=== PATIENT | male | born 1950 | race African-American/Black ===

== ENCOUNTER 2024-04-10 10:44 | Outpatient (CLI) | payer OTHER ==
[2024-04-10 12:12] LABS: #Basophils 0.04 10x3/uL (0.0-0.2); %Basophils 0.6 % (0.0-1.0); %Eosinophils 5.8 % (0.0-10.0); %Lymphocytes 32.2 % (21.0-51.0); %Monocytes 11.1 % (0.0-10.0); %Neutrophils 49.7 % (42.0-75.0); Hematocrit 48.1 % (42.0-52.0); Hemoglobin 16.3 g/dL (14.0-18.0); Mean Corpuscular HGB CONC 33.9 g/dL (32.0-36.0); Mean Corpuscular Hemoglobin 30.5 pg (27.0-31.0); Mean Corpuscular Volume 89.9 fL (78.0-98.0); Mean Platelet Volume 9.5 fL (7.4-10.4); Platelet Count 252 10x3/uL (130-400); RBC Distribution Width 14.4 % (11.5-14.5); Red Blood Cell (RBC) Count 5.35 mill/uL (4.70-6.10)
[2024-04-10 12:45] LABS: Anion Gap 14 mmol/L (10-20); BUN (Urea Nitrogen) 30 mg/dL (8.4-25.7); Calc. Creatinine Clearance 0 mL/min (70-130); Calcium 9.3 mg/dL (7.8-10.44); Carbon Dioxide 22 mmol/L (23-31); Chloride 111 mmol/L (98-107); Estimated GFR 40; Glucose 116 mg/dL (83-110); Potassium 3.7 mmol/L (3.5-5.1); Sodium 143 mmol/L (136-145)
== END 2024-04-10 10:45 | disposition home or self-care (01) ==
LOC: LABBT 10:44
PROVIDERS: ATTEND Thoracic Surgery (Cardiothoracic Vascular Surgery)
DX: Z01.818 Encounter for other preprocedural examination (principal); I65.22 Occlusion and stenosis of left carotid artery
CPT/HCPCS: 80048; 85025; 93005; 93010

== ENCOUNTER 2024-04-10 11:00 | Inpatient (IN) | payer OTHER ==
[2024-04-14] MEDS ORDERED: CEFAZOLIN 2 GM VIAL ONE (07:41)
[2024-04-14] MEDS ORDERED: Lidocaine 1% MPF 2 ML VIAL ONE (07:41)
[2024-04-14] MEDS ORDERED: PROPOFOL 20 ML ONE ×3 (09:09→10:40)
[2024-04-14] MEDS ORDERED: fentaNYL PF 100 MCG/2 ML SYRINGE ONE (09:09)
[2024-04-14] MEDS ORDERED: Heparin 5,000 UNITS/ML VIAL ONE (09:09)
[2024-04-14] MEDS ORDERED: EPINEPHrine 1 MG/ML VIAL ONE (09:09)
[2024-04-14] MEDS ORDERED: Bupivacaine PF 0.5% 30 ML VIAL ONE (09:09)
[2024-04-14] MEDS ORDERED: Glycopyrrolate 0.2 MG/ML 5 ML SYRINGE ONE (09:13)
[2024-04-14] MEDS ORDERED: Rocuronium Bromide 10 MG/ML (10ML VIAL) ONE (09:45)
[2024-04-14] MEDS ORDERED: CEFAZOLIN 1 GM VIAL ONE (09:50)
[2024-04-14] MEDS ORDERED: Heparin 10,000 UNITS/ 10 ML VIAL ONE (09:54)
[2024-04-14] MEDS ORDERED: PHENYLEPHRINE-NS 100 MCG/ML 10 ML SYRINGE ONE (10:18)
[2024-04-14] MEDS ORDERED: Protamine Sulfate 50 MG/5 ML VIAL ONE (10:31)
[2024-04-14] MEDS ORDERED: SUGAMMADEX SODIUM 200 MG/2 ML VIAL ONE (10:35)
[2024-04-14] MEDS ORDERED: Ondansetron PF 4 MG/2 ML Vial ONE (10:36)
[2024-04-14] MEDS ORDERED: Phenylephrine 40 MG/NS 250 ML 250 ML IVPB PRN (11:10)
[2024-04-14] MEDS ORDERED: Diclofenac 1% 50 GM TOPICAL GEL TP PRN (11:10)
[2024-04-14] MEDS ORDERED: Ondansetron PF 4 MG/2 ML Vial IVP PRN (11:10)
[2024-04-14] MEDS ORDERED: hydrALAZINE 20 MG/ML VIAL SLOW IVP PRN (11:10)
[2024-04-14] MEDS ORDERED: Acetaminophen 325 MG TAB PO PRN (11:10)
[2024-04-14] MEDS ORDERED: Insulin Regular, Human 100 UNIT/ML 10 ML VIAL SC PRN (11:10)
[2024-04-14] MEDS ORDERED: Nitroglycerin 50 MG/250 ML BOT 250 ML IVPB PRN (11:10)
[2024-04-14] MEDS ORDERED: Ipratropium/Albuterol 3 ML NEB NEB PRN (11:10)
[2024-04-14] MEDS: Sodium Chloride 0.9% 1,000 ML IV SCH (13:15)
[2024-04-14] MEDS: Ipratropium/Albuterol 3 ML NEB NEB SCH (13:29)
[2024-04-14] MEDS: traMADol HCl 50 MG TAB PO PRN (14:28)
[2024-04-14] MEDS: fentaNYL 50 mcg/mL 1 mL Vial SLOW IVP PRN (15:44)
[2024-04-14] MEDS: CEFAZOLIN 2 GM in Sodium Chloride 0.9% 100 ML IVPB SCH (18:22)
[2024-04-14 19:35] VITALS: BMI 25.7
[2024-04-14] MEDS: glipiZIDE 10 MG TAB PO SCH (20:25)
[2024-04-14] MEDS ORDERED: PETROLATUM TOP SCH (21:00)
[2024-04-14] MEDS ORDERED: CHOLESTEROL TOP SCH (21:00)
[2024-04-14] MEDS ORDERED: [UNRECOGNIZED DRUG - OTHER] TOP SCH (21:00)
[2024-04-14] MEDS: Dorzolamide HCl 2% Ophth (10 mL) Bottle R EYE SCH (21:15)
[2024-04-14] MEDS: Insulin Glargine 30 UNITS/0.3 ML VIAL SC SCH (21:17)
[2024-04-14] MEDS: Latanoprost 0.005% Ophth Soln 2.5 ml Bottle EA EYE SCH (21:17)
[2024-04-15] MEDS: Aspirin Chewable 81 MG TAB PO SCH (08:05)
[2024-04-15] MEDS: Ezetimibe 10 MG TAB PO SCH (08:08)
[2024-04-15] MEDS: Hydrochlorothiazide 25 MG TAB PO SCH (08:08)
[2024-04-15] MEDS: Cholecalciferol 1,000 UNITS (25 MCG) TAB PO SCH (08:08)
[2024-04-15] MEDS: Empagliflozin 25 MG TAB PO SCH (08:09)
[2024-04-15] MEDS: Lisinopril 20 MG TAB PO SCH (08:21)
[2024-04-15 08:22] VITALS: BP 132/68
[2024-04-15] MEDS: Clopidogrel Bisulfate 75 MG TAB PO SCH (08:51)
[2024-04-15 11:51] VITALS: TEMP 97.9
== END 2024-04-15 09:40 | disposition home or self-care (01) | DRG 39 ==
LOC: SURG A 04-14 06:59 → CCU 04-14 12:53
PROVIDERS: ADMIT Thoracic Surgery (Cardiothoracic Vascular Surgery); ATTEND Thoracic Surgery (Cardiothoracic Vascular Surgery)
PROC: 03CJ0ZZ Extirpation of Matter from Left Common Carotid Artery, Open Approach (ICD-10-PCS; principal; 2024-04-14)
PROC: 03CL0ZZ Extirpation of Matter from Left Internal Carotid Artery, Open Approach (ICD-10-PCS; 2024-04-14)
PROC: 03CN0ZZ Extirpation of Matter from Left External Carotid Artery, Open Approach (ICD-10-PCS; 2024-04-14)
DX: I65.22 Occlusion and stenosis of left carotid artery (principal); E78.00 Pure hypercholesterolemia, unspecified; I12.9 Hypertensive chronic kidney disease with stage 1 through stage 4 chronic kidney disease, or unspecified chronic kidney disease; E11.22 Type 2 diabetes mellitus with diabetic chronic kidney disease; Z79.899 Other long term (current) drug therapy; Z87.891 Personal history of nicotine dependence; N18.9 Chronic kidney disease, unspecified
CPT/HCPCS: 36416; 94640; C1768; J0171; J0665; J0690; J1642; J1644; J1815; J2405; J2704; J2720; J3010; J7030; J7620